=== PATIENT | female | born 1975 | race Caucasian/White ===

== ENCOUNTER 2023-02-03 21:51 | Observation (INO) | payer OTHER ==
[~2023-02-03] VITALS: Ht 170.2 cm; Wt 72.0 kg
[2023-02-03 23:13] LABS: BASOPHILS ABSOLUTE AUTO 0.02 K/mm3 (0.00-0.23); BASOPHILS PERCENT AUTO 0 % (0-2); EOSINOPHILS ABSOLUTE AUTO 0.06 K/mm3 (0.00-0.68); EOSINOPHILS PERCENT AUTO 1 % (0-6); Hematocrit 40.7 % (33.0-51.0); Hemoglobin 13.5 g/dL (11.5-16.0); IMMATURE GRAN ABSOLUTE AUTO 0.03 K/mm3 (0.00-0.10); IMMATURE GRAN PERCENT AUTO 0 % (0-1); LYMPHOCYTES ABSOLUTE AUTO 0.49 K/mm3 (0.84-5.20); LYMPHOCYTES PERCENT AUTO 7 % (21-46); MONOCYTES ABSOLUTE AUTO 0.38 K/mm3 (0.16-1.47); MONOCYTES PERCENT AUTO 6 % (4-13); Mean Corpuscular HGB Conc 33.2 g/dL (31.5-36.5); Mean Corpuscular Volume 87 fL (80-100); Mean Platelet Volume 10.7 fL (9.1-12.4); NEUTROPHILS ABSOLUTE AUTO 5.96 K/mm3 (1.96-9.15); NEUTROPHILS PERCENT AUTO 86 % (41-73); Platelet Count 130 K/mm3 (150-400); RDW Coefficient Variation 12.6 % (11.7-14.2); RDW Standard Deviation 40.3 fL (35.1-46.3); Red Blood Cell Count 4.66 M/mm3 (3.80-5.20); White Blood Cell Count 6.94 K/mm3 (4.00-11.30)
[2023-02-03 23:33] LABS: Albumin, Blood 3.1 g/dL (3.4-5.0); Albumin/Globulin Ratio 0.7 (0.8-1.8); Bilirubin, Total 0.3 mg/dL (0.1-1.0); Bun/Creatinine Ratio 19.2 (12.0-20.0); Calcium, Blood 8.6 mg/dL (8.5-10.1); Creatinine, Blood 0.68 mg/dL (0.40-1.00); Globulin, Blood 4.3 g/dL (2.2-4.0); Potassium, Blood 3.3 mmol/L (3.5-5.5); Total Protein, Blood 7.4 g/dL (6.4-8.2)
--- NOTE | 2023-02-04 02:24 | NUR ---
ADMIT NOTE 47 YR OLD FEMALE ADMITTED TO FLOOR FROM THE ED WITH DX OF SWELLING/CELLULITIS OF LEFT HAND AND ARM. ED RN REPORTED UNKNOWN ETIOLOGY, POSSIBLE CAT SCRATCH OR BITE. HX IV DRUG ABUSE. ALERT AND ORIENTED X 4. UP AD HARIKA. VSS. ORIENTED TO USE OF CALL LIGHT. CALL LIGHT IN REACH AND RAILS UP X 2 FOR SAFETY. LEFT ARM AND HAND QUITE SWOLLEN, REDDENED, SOME LEAKAGE. WRAPPED IN KERLIX. PLACED ON MED [employer] PER MD ORDERS. WILL CONTINUE TO MONITOR
[2023-02-04 02:53] VITALS: BP 114/73
[2023-02-04 05:32] LABS: U Amphetamine Screen DETECTED; U Barbituate Screen Not Detected; U Benzodiazapine Screen DETECTED; U Buprenorphine Screen Not Detected; U Cannabinoids Screen Not Detected; U Cocaine Screen Not Detected; U Methadone Screen Not Detected; U Methamphetamine Screen DETECTED; U Opiates Screen Not Detected; U Oxycodone Screen Not Detected; U Phencyclidine Screen Not Detected
[2023-02-04 05:41] LABS: BASOPHILS ABSOLUTE AUTO 0.01 K/mm3 (0.00-0.23); BASOPHILS PERCENT AUTO 0 % (0-2); EOSINOPHILS ABSOLUTE AUTO 0.01 K/mm3 (0.00-0.68); EOSINOPHILS PERCENT AUTO 0 % (0-6); Hematocrit 38.3 % (33.0-51.0); Hemoglobin 12.9 g/dL (11.5-16.0); IMMATURE GRAN ABSOLUTE AUTO 0.04 K/mm3 (0.00-0.10); IMMATURE GRAN PERCENT AUTO 1 % (0-1); LYMPHOCYTES ABSOLUTE AUTO 0.36 K/mm3 (0.84-5.20); LYMPHOCYTES PERCENT AUTO 5 % (21-46); MONOCYTES ABSOLUTE AUTO 0.17 K/mm3 (0.16-1.47); MONOCYTES PERCENT AUTO 2 % (4-13); Mean Corpuscular HGB Conc 33.7 g/dL (31.5-36.5); Mean Corpuscular Volume 86 fL (80-100); NEUTROPHILS PERCENT AUTO 92 % (41-73); RDW Coefficient Variation 12.7 % (11.7-14.2); RDW Standard Deviation 39.8 fL (35.1-46.3); Red Blood Cell Count 4.45 M/mm3 (3.80-5.20); White Blood Cell Count 7.39 K/mm3 (4.00-11.30)
[2023-02-04 05:44] LABS: Platelet Count 128 K/mm3 (150-400)
[2023-02-04 06:16] LABS: Albumin, Blood 2.7 g/dL (3.4-5.0); Albumin/Globulin Ratio 0.7 (0.8-1.8); Bilirubin, Total 0.3 mg/dL (0.1-1.0); Bun/Creatinine Ratio 17.8 (12.0-20.0); Calcium, Blood 8.5 mg/dL (8.5-10.1); Creatinine, Blood 0.51 mg/dL (0.40-1.00); Globulin, Blood 4.1 g/dL (2.2-4.0); Total Protein, Blood 6.8 g/dL (6.4-8.2)
--- NOTE | 2023-02-04 06:24 | NUR ---
POLICY OFFICER SUMMARY VSS. WAS ADMITTED EARLIER IN THE SHIFT WITH CELLULITIS OF LEFT HAND/ARM. SWOLLEN AND RED. UNKNOWN ETIOLOGY. ALERT AND ORIENTED X 4. HAS LISA RESTING QUIETLY WITH FEW INTERRUPTIONS. UP AD HARIKA. CALL LIGHT IN REACH. WILL CONTINUE TO MONITOR
[2023-02-04 07:55] VITALS: BP 133/86
[2023-02-04 16:36] VITALS: BP 128/85
[2023-02-04 19:13] VITALS: BP 124/81
--- NOTE | 2023-02-04 19:41 | NUR ---
SHIFT SUMMARY PATIENT WITH NO ACUTE EVENTS DURING SHIFT. MEDICATED FOR PAIN PER EMAR, PATIENT UP AD HARIKA TO BATHROOM. BED IN LOW POSITION. CALL LIGHT IN REACH. PATIENT CALLS APPROPRIATELY.
[2023-02-05 03:14] VITALS: BP 126/88
--- NOTE | 2023-02-05 03:29 | NUR ---
PERMIT TECHNICIAN SUMMARY VSS. RECEIVING ANTIBIOTICS IV FOR CELLULITIS OF LEFT ARM/HAND. LEFT ARM/HAND REMAIN SWOLLEN AND REDDENED, BUT REDNESS APPEARS LESS DARK COMPARED TO 24 HR AGO. VOICED FEELING BETTER COMPARED TO YESTERDAY. HAS BEEN RESTING QUIETLY WITH FEW INTERRUPTIONS. UP AD HARIKA. CALL LIGHT IN REACH. RAILS UP X 2 FOR SAFETY. WILL CONTINUE TO MONITOR.
[2023-02-05 07:43] VITALS: BP 146/94
[2023-02-05 08:42] LABS: BASOPHILS ABSOLUTE AUTO 0.05 K/mm3 (0.00-0.23); BASOPHILS PERCENT AUTO 1 % (0-2); EOSINOPHILS ABSOLUTE AUTO 0.02 K/mm3 (0.00-0.68); EOSINOPHILS PERCENT AUTO 0 % (0-6); Hematocrit 46.3 % (33.0-51.0); Hemoglobin 15.3 g/dL (11.5-16.0); IMMATURE GRAN ABSOLUTE AUTO 0.14 K/mm3 (0.00-0.10); IMMATURE GRAN PERCENT AUTO 1 % (0-1); LYMPHOCYTES PERCENT AUTO 10 % (21-46); MONOCYTES ABSOLUTE AUTO 0.81 K/mm3 (0.16-1.47); MONOCYTES PERCENT AUTO 8 % (4-13); Mean Corpuscular Volume 88 fL (80-100); Mean Platelet Volume 10.4 fL (9.1-12.4); NEUTROPHILS ABSOLUTE AUTO 8.74 K/mm3 (1.96-9.15); NEUTROPHILS PERCENT AUTO 80 % (41-73); Platelet Count 192 K/mm3 (150-400); RDW Standard Deviation 41.8 fL (35.1-46.3); Red Blood Cell Count 5.28 M/mm3 (3.80-5.20); White Blood Cell Count 10.86 K/mm3 (4.00-11.30)
[2023-02-05 09:06] LABS: Albumin/Globulin Ratio 0.6 (0.8-1.8); Bilirubin, Total 0.3 mg/dL (0.1-1.0); Bun/Creatinine Ratio 20.8 (12.0-20.0); Calcium, Blood 8.7 mg/dL (8.5-10.1); Creatinine, Blood 0.58 mg/dL (0.40-1.00); Globulin, Blood 4.7 g/dL (2.2-4.0); Potassium, Blood 3.8 mmol/L (3.5-5.5); Total Protein, Blood 7.7 g/dL (6.4-8.2)
[2023-02-05] MEDS ORDERED: ACET325 PO (12:26)
[2023-02-05] MEDS ORDERED: CEPH500 PO (12:26)
[2023-02-05] MEDS ORDERED: DELTASONE20 MG PO (12:27)
[2023-02-05] MEDS ORDERED: VISBIOME 112.51 EACH PO (12:30)
--- NOTE | 2023-02-05 15:34 | NUR ---
DISCHARGE SUMMARY PATIENT WITH NO ACUTE EVENTS TODAY, SHE IS MEDICATED FOR PAIN IN ARM WITH MINIMAL RELIEF, SWELLING DECREASED, PATIENT RESTLESS AND READY TO GO HOME ALL MORNING. MEDICATION AND EDUCATION PACKET PRINTED AND GIVEN TO PATIENT, EDUCATION PROVIDED, CONSENT SIGNED AT 1240 AND PATIENT OFFERED WHEELCHAIR TO FRONT ENTRANCE TO BOYFRIEND WHO IS HER RIDE BUT SHE DECLINED AND STATES SHE WANTS TO WALK HERSELF OUT. PATIENT LEFT AT 1241.
== END 2023-02-05 12:50 | disposition home or self-care (01) ==
LOC: ER 21:51 → MEDS 21:52 → ER 02-04 01:22 → MEDS 02-04 01:51 → ENPENDDIS 02-05 12:42 → MEDS 02-05 12:50
PROVIDERS: Family Medicine; Student in an Organized Health Care Education/Training Program; ADMIT Internal Medicine
DX: L03.114 Cellulitis of left upper limb (principal); L30.9 Dermatitis, unspecified; M79.89 Other specified soft tissue disorders; E87.6 Hypokalemia; F15.99 Other stimulant use, unspecified with unspecified stimulant-induced disorder; F17.210 Nicotine dependence, cigarettes, uncomplicated
CPT/HCPCS: 36415; 76882; 80053; 83605; 85025; 87040; 96365; 96372; 96375; 96376; 99284-25; A9270; G0378; J0690; J1100; J1650; J7050; J7512